=== PATIENT | male | born 1955 | race Caucasian/White ===

== ENCOUNTER → 2023-12-05 18:31 | Outpatient (REF) | payer MEDICARE, SELFPAY | LOC: MRI 18:31 | PROVIDERS: ATTENDING PHYSICIAN Physician Assistant Medical | DX: H91.92 Unspecified hearing loss, left ear (principal); Z85.818 Personal history of malignant neoplasm of other sites of lip, oral cavity, and pharynx; H81.12 Benign paroxysmal vertigo, left ear | CPT/HCPCS: 70553; A9575 ==

== ENCOUNTER → 2024-03-15 06:39 | Day surgery (SDC) | payer MEDICARE, SELFPAY | LOC: GI 06:39 | PROVIDERS: ATTENDING PHYSICIAN Internal Medicine Gastroenterology | DX: K57.30 Diverticulosis of large intestine without perforation or abscess without bleeding (principal); K64.8 Other hemorrhoids; K52.9 Noninfective gastroenteritis and colitis, unspecified; K29.50 Unspecified chronic gastritis without bleeding; K51.80 Other ulcerative colitis without complications | CPT/HCPCS: 45380; 88305 ==

== ENCOUNTER → 2024-08-02 10:52 | Outpatient (REF) | payer MEDICARE, SELFPAY | LOC: RAD 10:52 | PROVIDERS: ATTENDING PHYSICIAN Internal Medicine Gastroenterology; FAMILY PHYSICIAN Physician Assistant Medical; OTHER PHYSICIAN Urology | DX: K51.00 Ulcerative (chronic) pancolitis without complications (principal) | CPT/HCPCS: 74177; Q9967 ==

== ENCOUNTER → 2024-08-11 07:27 | Outpatient (REF) | payer MEDICARE, SELFPAY | LOC: PAVMRI 07:27 | PROVIDERS: ATTENDING PHYSICIAN Internal Medicine Gastroenterology; FAMILY PHYSICIAN Physician Assistant Medical | DX: K83.8 Other specified diseases of biliary tract (principal) | CPT/HCPCS: 74183; A9575 ==

== ENCOUNTER 2025-01-14 06:22 | Day surgery (SDC) | payer MEDICARE, SELFPAY | END 2025-01-14 13:34 | disposition home or self-care (01) | LOC: GI 06:22 | PROVIDERS: ATTENDING PHYSICIAN Internal Medicine Gastroenterology | DX: R10.13 Epigastric pain (principal); K29.70 Gastritis, unspecified, without bleeding; K29.50 Unspecified chronic gastritis without bleeding; B96.81 Helicobacter pylori [H. pylori] as the cause of diseases classified elsewhere | CPT/HCPCS: 43239; 88305; 88342 ==

== ENCOUNTER 2025-02-23 09:14 | Emergency (ER) | payer MEDICARE, SELFPAY ==
[2025-02-23 09:15] VITALS: BP 146/78
--- NOTE | 2025-02-23 10:15 | ED.GENMED ---
History of Present Illness
General
Chief Complaint: Rectal Bleeding
Source: patient
Exam Limitations: none
Time Seen by Provider: 02/23/25 10:01
History of Present Illness
History of Present Illness:
See MDM
Past History
Past History
ED Past Medical History: Other (Lyme's disease, salivary gland cancer, trigeminal neuralgia)
ED Past Surgical History: None
Social History
Tobacco: Non-smoker
Employment: Employed
Phy Exam
Physical Exam
Physical Exam:
See MDM
Course
Orders/Labs/Results
Orders:
Orders
02/23/25 10:14
0.9% Sodium Chloride 1000 ml [Nss] 1,000 ml IV BOLUS
02/23/25 10:21
MethylPREDNISolone PF [Solu-Medrol Pf] 30 mg IV ONCE ONE
02/23/25 10:49
Complete Blood Count/With Diff Urgent
Comprehensive Metabolic Panel Urgent
PTT Urgent
Prothrombin Time Urgent
02/23/25 12:25
Prednisone [Deltasone] 40 mg PO NOW STA
Abnormal Lab Results
02/23/25
10:49
RBC 3.68 L 10^6/uL
(4.70-6.10)
Hgb 10.8 L g/dL
(13.0-18.0)
Hct 32.4 L %
(39.0-52.0)
Abs Immat Gran (auto) 0.1 H 10^3/uL
(0-0.05)
Absolute Monos (auto) 0.8 H 10^3/uL
(0.1-0.6)
Immature Gran % 0.7 H %
(0-0.5)
Lymphocytes % 20.2 L %
(20.5-51.1)
Monocytes % 10.1 H %
(1.7-9.3)
Eosinophils % 7.9 H %
(0-6)
ALT 82 H U/L
(0-50)
Alkaline Phosphatase 164 H U/L
(38-126)
02/23/25 10:49
02/23/25 10:49
Vital Signs
Initial and Last Documented VS:
Initial Vital Signs
Temp Pulse Resp BP Pulse Ox
97.6 F 90 16 146/78 100
02/23/25 09:15 02/23/25 09:15 02/23/25 09:15 02/23/25 09:15 02/23/25 09:15
Last Documented Vital Signs
Temp Pulse Resp BP Pulse Ox
97.6 F 80 16 146/78 100
02/23/25 09:15 02/23/25 11:42 02/23/25 11:42 02/23/25 09:15 02/23/25 09:15
MDM/Problems Addressed
Differential Diagnosis Includes:
HPI and MDM Narrative:
69-year-old male presenting with concern for Crohn's flare. Over the past week, patient has more persistent bloody bowel movements. This is associated with intermittent diarrhea. Patient is currently on Stelara for his Crohn's disease. He
recently finished a course of antibiotics for recently diagnosed H. pylori. Initially thought that the bowel movements could be related to antibiotics. Due to his ongoing symptoms, he discussed his case with his search engine optimization analyst who sent him in
for IV steroids. Few months ago, patient was on 20 mg of steroids a day as he was transitioning to a different biologic. During his steroid use, patient states his symptoms are well-controlled. He complains of mild abdominal discomfort denies any
fevers
Physical exam
General: Well appearing and non-toxic
HEENT: protecting airway
Neck: appears supple
CV: No evidence of cyanosis
Resp: No accessory muscle use
Abd: Non-distended. Soft. No significant tenderness noted
Extremities: No deformities
Neuro: alert
Psych: Normal affect
Skin: Intact
Problems Addressed including Acute and Chronic Conditions affecting care:
1. Crohn's flare
Acuity: acute
Prognosis: stable
Details: Will discuss case with GI. Will obtain basic blood work
Updates
10:20 AM Case discussed with on-call GI who agrees with checking stool studies if patient can give sample. If he remains nontoxic and has no reason to be admitted, she suggested starting 40 mg of prednisone daily for 10 days and they will take care
of the tapering. In the meantime, patient given 30 mg of IV Solu-Medrol per GI request
Patient is mildly anemic but states he is feeling better. No diarrhea episodes in the emergency department indicating that C. difficile is less likely
Differential Diagnosis (but not limited to): Crohn's flare, diverticulitis, C. difficile
Testing considered: CT abdomen/pelvis
Drug therapy (if applicable): OTC meds, please see d/c instruction regarding Rx drugs
Amount and/or Complexity of Data Reviewed
Clinical info obtained from: Patient
External data reviewed: N/A
Labs I independently reviewed (but not limited to): Mild anemia
Radiology: N/A
Pulse Ox: not hypoxic
EKG independently reviewed: N/A
Heel Sorter: N/A
Critical Care: N/A
Risk of Complication:
Social Determinants of health: Good social support
Discussed with other providers: Gastroenterology
Escalation of Care includes Admit/Obs: After being observed in the Emergency Department, pt stable for discharge.
Occasional wrong word or 'sound a like' substitutions may have occurred due to the inherent limitations of voice recognition software. Read the chart carefully and recognize, using context, where substitutions have occurred.
*Critical Care Note
Total Time (30-74mins, 75-104mins- exclusive of procedures): Not Applicable
ED Attending Note
-
Portions of this chart may have been created with voice recognition software.� Occasional wrong word or��sound alike� substitutions may have occurred due to the inherent limitations of voice recognition software.
Discharge Plan
Departure
Patient Disposition: Home (Routine Discharge)
Date of Disposition: 02/23/25
Time of Disposition: 12:26
Patient with high blood pressure during this ER visit?: Yes
Discharge Problem:
Bloody diarrhea
Instructions: Bloody Stools, Adult (DC)
Prescriptions:
New
prednisone 20 mg tablet
40 mg PO DAILY 10 Days Qty: 20 0RF
No Action
citalopram 10 MG tablet
10 mg PO DAILY
clonazepam 1 MG tablet
2 mg PO HS
acetaminophen [Tylenol Extra Strength] 500 MG tablet
500 mg PO PRN PRN (Reason: headache)
ibuprofen [Advil] 200 MG tablet
400 mg PO PRN PRN (Reason: pain)
omeprazole magnesium [Prilosec OTC] 20 MG tablet,delayed release (DR/EC)
20 mg PO DAILY
multivitamin with folic acid [Tab-A-Laine] 1 TABLET tablet
1 tab PO DAILY
sulfamethoxazole-trimethoprim 800 MG/160 MG tablet
1 tab PO BID Qty: 20 0RF
rifampin 300 MG capsule
300 mg PO BID Qty: 20 0RF
mupirocin 2 % ointment
1 applic topical TID Qty: 30 3RF
Referrals:
Becky Tafoya PA-C [Family Provider, Family Practice]
Activity Restrictions/Additional Instructions:
Please return for any worsening symptoms.
You may return at any time if you have further concerns.
Please keep your GI appointment. They will taper your steroids.
Thank you for choosing [facility].
Interventions
Interventions:
*Risk Screen - Suicide Last Done: 02/23/25 10:09
*General Assessment Last Done: 02/23/25 10:09
*Neglect/Abuse Screening Last Done: 02/23/25 10:09
ZI-Kzlshw-Yizjchymng Assessment Last Done: 02/23/25 11:42
ED- Cardiac Assessment Last Done: 02/23/25 11:42
ED- Pulmonary Assessment Last Done: 02/23/25 11:42
Discharge Date and Time
Print Language: TURKMEN
[2025-02-23] MEDS: NSS 1000 IV (10:51)
[2025-02-23] MEDS: SOLU-MEDROL PF 30 MG IV (10:56)
[2025-02-23 10:57] LABS: % Basophils 0.4 % (0-2); % Eosinophils 7.9 % (0-6); % Immature Granulocytes 0.7 % (0-0.5); % Lymphocytes 20.2 % (20.5-51.1); % Monocytes 10.1 % (1.7-9.3); % Neutrophils 60.7 % (42.2-75.2); Absolute Eosinophils 0.7 10^3/uL (0-0.7); Absolute Immature Granulocytes 0.1 10^3/uL (0-0.05); Absolute Lymphocytes 1.7 10^3/uL (1.2-3.4); Absolute Monocytes 0.8 10^3/uL (0.1-0.6); Hematocrit 32.4 % (39.0-52.0); Hemoglobin 10.8 g/dL (13.0-18.0); Mean Corp Hgb Conc. 33.3 g/dL (33.0-37.0); Mean Corpuscular Hgb 29.3 pg (27.0-31.0); Mean Platelet Volume 9.3 fL (7.4-10.4); Nucleated Red Blood Cells % 0 % (-); Platelet Count 377 10^3/uL (130-400); Red Blood Cell Count 3.68 10^6/uL (4.70-6.10); Red Cell Dist. Width 13.1 % (11.5-14.5); White Blood Cell Count 8.2 10^3/uL (4.8-10.8)
[2025-02-23 10:58] VITALS: BMI 24.4
[2025-02-23 11:08] LABS: INR 0.92; PT 12.7 Sec (11.4-14.6)
[2025-02-23 11:29] LABS: ALT (SGPT) 82 U/L (0-50); AST (SGOT) 40 U/L (17-59); Albumin 3.6 g/dl (3.5-5.0); Alkaline Phosphatase 164 U/L (38-126); Blood Urea Nitrogen 13 mg/dl (9-20); Calcium 9.1 mg/dl (8.4-10.2); Carbon Dioxide 30 mmol/L (22-30); Chloride 106 mmol/L (98-107); Estimated Creatinine Clearance 90 ml/min; Glucose 97 mg/dl (70-99); Potassium 3.8 mmol/L (3.5-5.1); Sodium 140 mmol/L (135-145); Total Bilirubin 0.4 mg/dl (0.2-1.3); Total Protein 6.4 g/dl (6.3-8.2); eGFR > 60.00
[2025-02-23] MEDS: DELTASONE 40 MG PO (12:34)
[2025-02-23 12:54] VITALS: BP 132/70
== END 2025-02-23 12:55 | disposition home or self-care (01) ==
LOC: EMR 09:14
PROVIDERS: EMERGENCY PHYSICIAN Student in an Organized Health Care Education/Training Program; FAMILY PHYSICIAN Physician Assistant Medical
DX: R19.7 Diarrhea, unspecified (principal); K92.1 Melena
CPT/HCPCS: 99283; 96374; 96361; 80053; 85025; 85610; 85730

== ENCOUNTER 2025-05-08 06:26 | Day surgery (SDC) | payer MEDICARE, SELFPAY | END 2025-05-08 11:46 | disposition home or self-care (01) | LOC: GI 06:26 | PROVIDERS: ATTENDING PHYSICIAN Internal Medicine Gastroenterology; FAMILY PHYSICIAN Physician Assistant Medical | DX: K57.30 Diverticulosis of large intestine without perforation or abscess without bleeding (principal); K64.8 Other hemorrhoids; K50.80 Crohn's disease of both small and large intestine without complications; K63.89 Other specified diseases of intestine; K62.89 Other specified diseases of anus and rectum; K51.40 Inflammatory polyps of colon without complications; K52.89 Other specified noninfective gastroenteritis and colitis | CPT/HCPCS: 45385; 45380; 88305; 88342 ==